=== PATIENT | female | born 1990 ===

== ENCOUNTER 2016-11-05 13:31 | Emergency (ER) | payer MEDICAID, OTHER ==
[2016-11-05 13:46] VITALS: BP 115/78; PULSE 61; RESP 18; TEMP 97.7; O2SAT 100
--- NOTE | 2016-11-05 14:43 | ED PDOC ---
Syncope/Near Syncope/Dizzyness Time Seen by Provider: 11/05/16 14:07 Chief Complaint (Nursing): Dizziness/Lightheaded Chief Complaint (Provider): Dizzy History Per: Patient Additional Complaint(s): pt c/o dizziness and nausea today. also c/o pain from rt buttock radiating to rt thigh x3 days with pain on urination. Past Medical History Reviewed: Nursing Documentation, Vital Signs Vital Signs: Last Vital Signs Temp 97.7 F 11/05/16 13:40 Pulse 61 11/05/16 13:40 Resp 18 11/05/16 13:40 BP 115/78 11/05/16 13:40 Pulse Ox 100 11/05/16 13:40 - Surgical History Surgical History: Appendectomy (2008) - Family History Family History: States: Unknown Family Hx - Social History Current smoker - smoking cessation education provided: No Alcohol: Social - Home Medications Home Medications: Ambulatory Orders Medication Instructions Recorded Acetaminophen [Tylenol 325mg tab] 650 mg PO Q6 PRN #0 tab 02/20/16 Ciprofloxacin [Cipro] 1 tab PO BID #20 tab 02/20/16 Ibuprofen [Motrin Tab] 600 mg PO Q8 PRN #21 tab 02/20/16 Cyclobenzaprine [Cyclobenzaprine 10 mg PO TID #20 tab 11/05/16 HCl] Ibuprofen [Motrin] 600 mg PO Q6 #20 tab 11/05/16 oxyCODONE/Acetaminophen [Percocet 1 ea PO Q6 PRN #5 tab 11/05/16 5/325 mg Tab] - Allergies Allergies/Adverse Reactions: Allergies Allergy/AdvReac Type Severity Reaction Status Date / Time Penicillins AdvReac Mild yeast Verified 11/05/16 13:40 metronidazole AdvReac NAUSEA Verified 11/05/16 13:40 Review of Systems ROS Statement: Except As Marked, All Systems Reviewed And Found Negative Musculoskeletal: Positive for: Back Pain Physical Exam - Reviewed Nursing Documentation Reviewed: Yes Vital Signs Reviewed: Yes - Physical Exam Appears: Positive for: Well, Non-toxic, No Acute Distress Head Exam: Positive for: ATRAUMATIC, NORMAL INSPECTION, NORMOCEPHALIC Skin: Positive for: Normal Color, Warm, DRY Eye Exam: Positive for: EOMI, Normal appearance, PERRL ENT: Positive for: Normal ENT Inspection Neck: Positive for: Normal, Painless ROM Cardiovascular/Chest: Positive for: Regular Rate, Rhythm Respiratory: Positive for: CNT, Normal Breath Sounds Gastrointestinal/Abdominal: Positive for: Normal Exam, Bowel Sounds, Soft Back: Positive for: Normal Inspection Extremity: Positive for: Normal ROM Neurologic/Psych: Positive for: Alert, Oriented - Laboratory Results Result Diagrams: 11/05/16 14:35 11/05/16 14:35 - ECG O2 Sat by Pulse Oximetry: 100 Medical Decision Making Medical Decision Making: Diagnostics reviewed with Pt who demonstrated full understanding medicate with zofran, Perc and Toradol. doing well on re-eval. Disposition - Clinical Impression Clinical Impression: Sciatica - Patient ED Disposition Is Patient to be Admitted: No - Disposition Disposition: Routine/Home Disposition Time: 17:00 Condition: GOOD Prescriptions: Cyclobenzaprine [Cyclobenzaprine HCl] 10 mg PO TID #20 tab Ibuprofen [Motrin] 600 mg PO Q6 #20 tab oxyCODONE/Acetaminophen [Percocet 5/325 mg Tab] 1 ea PO Q6 PRN #5 tab PRN Reason: Pain, Severe (8-10) Instructions: Sciatica (ED) Forms: [facility] ED School/Work Excuse - POA Present On Arrival: None
[2016-11-05 14:54] LABS: BASO # 0.1 K/uL (0.0-0.2); BASO % 0.8 % (0.0-2.0); EOS # 0.2 K/uL (0.0-0.7); EOS % 3.6 % (0.0-4.0); HEMATOCRIT 34.7 % (34.0-47.0); LYMPH # 2.5 K/uL (1.0-4.3); LYMPH % 40.3 % (20.0-40.0); MEAN CELL VOLUME 90.5 fl (81.0-99.0); MEAN CORPUSCULAR HEMOGLOBIN 29.7 pg (27.0-31.0); MEAN CORPUSCULAR HGB CONC 32.9 g/dL (33.0-37.0); MEAN PLATELET VOLUME 9.6 fl (7.2-11.7); MONO # 0.4 K/uL (0.0-0.8); MONO % 6.2 % (0.0-10.0); NEUT # 3.1 K/uL (1.8-7.0); NEUT % 49.1 % (50.0-75.0); NRBC % 0.1 % (0.0-0.0); RED CELL DISTRIBUTION WIDTH 13.4 % (11.5-14.5); WHITE BLOOD COUNT 6.3 K/uL (4.8-10.8)
[2016-11-05 15:00] LABS: ALB/GLOB RATIO 1.4 (1.0-2.1); ALKALINE PHOSPHATASE 79 U/L (38-126); ALT/SGPT 20 U/L (9-52); AST/SGOT 31 U/L (14-36); BILIRUBIN,TOTAL 0.7 mg/dl (0.2-1.3); BLOOD UREA NITROGEN 13 mg/dl (7-17); CALCIUM 9.2 mg/dL (8.4-10.2); CARBON DIOXIDE 26 mmol/L (22-30); CHLORIDE 105 mmol/L (98-107); GFR AFRICAN-AMERICAN > 60; GLUCOSE,RANDOM 93 mg/dL (65-105); POTASSIUM 3.9 MMOL/L (3.6-5.0); SODIUM 144 mmol/l (132-148); TOTAL PROTEIN 7.4 G/DL (6.3-8.2)
[2016-11-05 15:03] LABS: RBC URINE 1 /hpf (0-3); URINE BILIRUBIN NEGATIVE (NEGATIVE); URINE BLOOD NEGATIVE (NEGATIVE); URINE COLOR YELLOW (YELLOW); URINE GLUCOSE (UA) NEG (Normal); URINE KETONE NEGATIVE (NEGATIVE); URINE LEUKOCYTE ESTERASE NEG Leu/uL (Negative); URINE PROTEIN NEGATIVE (NEGATIVE); WBC URINE 1 /hpf (0-5)
--- NOTE | 2016-11-05 17:09 | US ---
HISTORY: RLQ pain, r/o torsion COMPARISON: None available. TECHNIQUE: Transvaginal FINDINGS: UTERUS: Measures 7.2 x 3.2 x 6.3 cm. Posterior intramural uterine fibroid, 1.3 x 1.5 x 1.6 cm. ENDOMETRIUM: Measures 5 mm in diameter. Trace endometrial fluid. CERVIX: No cervical abnormality identified. RIGHT OVARY: Measures 3.2 x 2.7 x 3.1 cm. No solid mass. Normal flow. Follicular cysts up to 2.2 cm. LEFT OVARY: Measures 2.7 x 1.9 x 2.9 cm. No solid mass. Normal flow. Follicular cysts noted. FREE FLUID: No significant free fluid noted. OTHER FINDINGS: None IMPRESSION: 1.6 cm posterior intramural uterine fibroid. Trace endometrial fluid. No evidence of ovarian torsion.
[2016-11-05] MEDS ORDERED: Oxycodone/Acetaminophen 5/325 mg Tab PO STA (17:52)
[2016-11-05] MEDS ORDERED: Oxycodone/Acetaminophen 5/325 mg Tab ONE (18:33)
== END 2016-11-05 18:43 | disposition home or self-care (01) ==
LOC: H.ER 13:31
DX: M54.30 Sciatica, unspecified side (principal)

== ENCOUNTER 2017-07-06 11:09 | Emergency (ER) | payer MEDICAID, OTHER ==
[2017-07-06 11:17] VITALS: RESP 18; TEMP 97.6
--- NOTE | 2017-07-06 11:43 | ED PDOC ---
HPI: Back Time Seen by Provider: 07/06/17 11:30 Chief Complaint (Nursing): Back Pain Chief Complaint (Provider): low back pain History Per: Patient Additional Complaint(s): 26-year-old female presents to emergency department with right-sided back pain that radiates down her right leg. Patient states the pain started yesterday. She denies trauma or injury. Patient has had flareups of sciatica pain in the past. She took Motrin last night which allowed her to sleep but when she woke up this morning she had worsening pain prompting ED visit. No acute bowel or bladder dysfunction. She rates current pain as an 8 out of 10. Past Medical History Reviewed: Historical Data Vital Signs: Last Vital Signs Temp 97.6 F 07/06/17 11:17 Pulse 68 07/06/17 11:17 Resp 18 07/06/17 11:17 BP 107/56 L 07/06/17 11:17 Pulse Ox 100 07/06/17 11:17 - Medical History PMH: Back Problems - Surgical History Surgical History: Appendectomy (2009), (x 2) Other surgeries: gastric bypass surgery - Family History Family History: States: No Known Family Hx - Living Arrangements Living Arrangements: With Family - Social History Current smoker - smoking cessation education provided: No Alcohol: None Drugs: Denies - Home Medications Home Medications: Ambulatory Orders Medication Instructions Recorded Acetaminophen [Tylenol 325mg tab] 650 mg PO Q6 PRN #0 tab 02/20/16 Ciprofloxacin [Cipro] 1 tab PO BID #20 tab 02/20/16 Ibuprofen [Motrin Tab] 600 mg PO Q8 PRN #21 tab 02/20/16 Cyclobenzaprine [Cyclobenzaprine 10 mg PO TID #20 tab 11/05/16 HCl] Ibuprofen [Motrin] 600 mg PO Q6 #20 tab 11/05/16 oxyCODONE/Acetaminophen [Percocet 1 ea PO Q6 PRN #5 tab 11/05/16 5/325 mg Tab] Metoclopramide [Reglan] 10 mg PO Q6 PRN #20 tab 06/08/17 Naproxen [Naprosyn] 500 mg PO BID #20 tab 06/08/17 Cyclobenzaprine [Cyclobenzaprine 10 mg PO TID PRN #20 tab 07/06/17 HCl] Naproxen [Naprosyn] 500 mg PO BID #20 tab 07/06/17 - Allergies Allergies/Adverse Reactions: Allergies Allergy/AdvReac Type Severity Reaction Status Date / Time Penicillins AdvReac Mild yeast Verified 07/06/17 11:40 metronidazole AdvReac NAUSEA Verified 07/06/17 11:40 Review of Systems ROS Statement: Except As Marked, All Systems Reviewed And Found Negative Genitourinary Female: Negative for: Dysuria, Frequency, Incontinence, Hematuria Musculoskeletal: Positive for: Back Pain (with radiation to right leg) Physical Exam - Reviewed Nursing Documentation Reviewed: Yes Vital Signs Reviewed: Yes - Physical Exam Appears: Positive for: Well, Non-toxic, No Acute Distress Skin: Negative for: Rash Eye Exam: Positive for: Normal appearance Cardiovascular/Chest: Positive for: Regular Rate, Rhythm Respiratory: Positive for: Normal Breath Sounds Back: Positive for: Vertebral Tenderness (right side lower lumbar tenderness), Other (straight leg raise positive on right leg at 30 degrees, negative on left) . Negative for: L CVA Tenderness, R CVA Tenderness Extremity: Positive for: Normal ROM Neurologic/Psych: Positive for: Alert, Oriented - Laboratory Results Urine POC: Negative Urine dip results: Positive for: Blood (moderate - patient is currently menstruating). Negative for: Leukocyte Esterase, Nitrate, Ketones, Glucose, Bilirubin, Protein - ECG O2 Sat by Pulse Oximetry: 100 Pulse Ox Interpretation: Normal - Other Rad L/S Spine X-ray X-Ray: Interpreted by Me, Viewed By Me X-Ray Interpretation: no acute fx, no dis Medical Decision Making Medical Decision Makin-year-old female with back pain and sciatica Plan: IM toradol PO flexeril Urine dip/ test L/S Spine x-ray Patient reports improvement to pain after medications administered. She is aware of all diagnostic testing results, all questions answered. Patient given prescriptions for Naprosyn and Flexeril. She was referred to orthopedist operator electronic warfare or instructed to follow-up with primary doctor for further evaluation. Disposition - Clinical Impression Clinical Impression: Back pain, Sciatica - Patient ED Disposition Is Patient to be Admitted: No Counseled Patient/Family Regarding: Studies Performed, Diagnosis, Need For Followup, Rx Given - Disposition Referrals: Jaleel Cardoza III, MD [Staff Provider] - Disposition: Routine/Home Disposition Time: 15:19 Condition: STABLE Additional Instructions: Take prescription medications as directed as needed for pain. Rest as much as possible and avoid heavy lifting. Follow up with primary doctor or orthopedist for any persistent symptoms. Prescriptions: Cyclobenzaprine [Cyclobenzaprine HCl] 10 mg PO TID PRN #20 tab PRN Reason: Muscle Spasm Naproxen [Naprosyn] 500 mg PO BID #20 tab Instructions: Sciatica (ED), Back Pain (ED) Forms: [employer] (Belarusian), [facility] ED School/Work Excuse
--- NOTE | 2017-07-06 13:40 | RAD ---
PROCEDURE: Radiographs of the Lumbar Spine. HISTORY: pain COMPARISON: CT abdomen and pelvis with contrast performed 02/19/16 FINDINGS: BONES: Alignment appears satisfactory. No listhesis. No acute displaced fracture identified. DISC SPACES: Unremarkable. OTHER FINDINGS: Scattered surgical clips noted. IMPRESSION: No acute displaced fracture or subluxation identified.
[2017-07-06 15:57] VITALS: BP 109/60; PULSE 69
[2017-07-06 16:57] VITALS: O2SAT 100
== END 2017-07-06 15:58 | disposition home or self-care (01) ==
LOC: H.ER 11:09
DX: M54.31 Sciatica, right side (principal); Z88.0 Allergy status to penicillin
CPT/HCPCS: 72100; 81025; 96372; 99283; J1885

== ENCOUNTER 2018-06-11 10:11 | Emergency (ER) | payer OTHER ==
[2018-06-11 10:16] VITALS: BMI 25.4
[2018-06-11] MEDS ORDERED: Lidocaine 5% Patch TD STA (11:12)
[2018-06-11] MEDS ORDERED: Lidocaine 5% Patch TD ONE (11:19)
--- NOTE | 2018-06-11 12:10 | ED PDOC ---
HPI: Back Time Seen by Provider: 06/11/18 10:33 Chief Complaint (Nursing): Back Pain History Per: Patient Additional Complaint(s): Pt. states for the past 3 days she's had atraumatic non-radiating lower back pain. Pain is worsened with movement. Further states she's been taking Aleve without relief. Reports a hx of sciatica but no previous back surgery. Denies incontinence, dysuria, hematuria, N/V/D, abdominal pain, saddle paresthesias, leg pain. Past Medical History Reviewed: Historical Data, Nursing Documentation, Vital Signs Vital Signs: Last Vital Signs Temp 98.1 F 06/11/18 10:16 Pulse 61 06/11/18 10:16 Resp 18 06/11/18 10:16 BP 110/67 06/11/18 10:16 Pulse Ox 100 06/11/18 10:16 - Medical History PMH: Back Problems, Chronic Kidney Disease - Surgical History Surgical History: Appendectomy (2008), (x 2) - Family History Family History: States: Unknown Family Hx - Home Medications Home Medications: Ambulatory Orders Medication Instructions Recorded Acetaminophen [Tylenol 325mg tab] 650 mg PO Q6 PRN #0 tab 02/20/16 Ciprofloxacin [Cipro] 1 tab PO BID #20 tab 02/20/16 Ibuprofen [Motrin Tab] 600 mg PO Q8 PRN #21 tab 02/20/16 Cyclobenzaprine [Cyclobenzaprine 10 mg PO TID #20 tab 11/05/16 HCl] Ibuprofen [Motrin] 600 mg PO Q6 #20 tab 11/05/16 oxyCODONE/Acetaminophen [Percocet 1 ea PO Q6 PRN #5 tab 11/05/16 5/325 mg Tab] Metoclopramide [Reglan] 10 mg PO Q6 PRN #20 tab 06/08/17 Naproxen [Naprosyn] 500 mg PO BID #20 tab 06/08/17 Cyclobenzaprine [Cyclobenzaprine 10 mg PO TID PRN #20 tab 07/06/17 HCl] Naproxen [Naprosyn] 500 mg PO BID #20 tab 07/06/17 Cyclobenzaprine [Cyclobenzaprine 10 mg PO Q8 PRN #14 tab 06/11/18 HCl] Meloxicam [Mobic] 7.5 mg PO DAILY PRN #10 tab 06/11/18 - Allergies Allergies/Adverse Reactions: Allergies Allergy/AdvReac Type Severity Reaction Status Date / Time metronidazole AdvReac NAUSEA Verified 06/11/18 10:23 Review of Systems ROS Statement: Except As Marked, All Systems Reviewed And Found Negative Musculoskeletal: Positive for: Back Pain Physical Exam - Physical Exam Appears: Positive for: Well, Non-toxic, No Acute Distress Skin: Positive for: Normal Color, Warm. Negative for: Rash Eye Exam: Positive for: Normal appearance Cardiovascular/Chest: Positive for: Regular Rate, Rhythm Respiratory: Positive for: Normal Breath Sounds Gastrointestinal/Abdominal: Positive for: Soft. Negative for: Tenderness Back: Positive for: Normal Inspection, Muscle Spasm (b/l paralumbar muscle spasm with tenderness). Negative for: L CVA Tenderness, R CVA Tenderness, Vertebral Tenderness Extremity: Positive for: Normal ROM Neurologic/Psych: Positive for: Alert, Oriented (x3) - ECG O2 Sat by Pulse Oximetry: 100 - Radiology X-Ray: Read By Radiologist (LS spine x-ray) X-Ray Interpretation: No Acute Disease - Progress ED Course And Treament: Toradol 30mg IM, flexeril 10mg PO, lidoderm patch, LS spine x-ray, UA ordered. Re-evaluation Time: 13:08 (States she is currently on her period. Advised to f/u with [facility] for further evaluatin of back pain. ) Condition: Re-examined, Improved Disposition - Clinical Impression Clinical Impression: Low back pain - Patient ED Disposition Is Patient to be Admitted: No - Disposition Referrals: [facility] [Outside] Disposition: Routine/Home Disposition Time: 13:09 Condition: IMPROVED Additional Instructions: JOSH CISNEROS, thank you for letting us take care of you today. Your provider was Taty Adams MD and you were treated for BACK PAIN. The emergency medical care you received today was directed at your acute symptoms. If you were prescribed any medication, please fill it and take as directed. It may take several days for your symptoms to resolve. Return to the Emergency Department if your symptoms worsen, do not improve, or if you have any other problems. Please contact your doctor or call one of the physicians/clinics you have been referred to that are listed on the Patient Visit Information form that is included in your discharge packet. Bring any paperwork you were given at discharge with you along with any medications you are taking to your follow up visit. Our treatment cannot replace ongoing medical care by a primary care provider outside of the emergency department. Thank you for allowing the [facility] team to be part of your care today. If you had an X-Ray or CT scan: A Radiologist will review the ED reading if any change in treatment is needed we will contact you. If you had a blood, urine, or wound culture: It will take several days for the results, if any change in treatment is needed we will contact you. If you had an STI test: It will take 48 hours for the results. Please call after 1 week if you have not heard back. Prescriptions: Cyclobenzaprine [Cyclobenzaprine HCl] 10 mg PO Q8 PRN #14 tab PRN Reason: Muscle Spasm Meloxicam [Mobic] 7.5 mg PO DAILY PRN #10 tab PRN Reason: Pain, Mild (1-3) Instructions: Low Back Pain (DC) Forms: [employer] (Vietnamese)
--- NOTE | 2018-06-11 12:10 | RAD ---
Date of service: 06/11/2018 PROCEDURE: Radiographs of the Lumbar Spine. HISTORY: pain COMPARISON: No prior. FINDINGS: BONES: Three views of the lumbar spine were performed. No fracture is seen. No malalignment is noted. Posterior elements are intact. Minor endplate changes are identified in the lumbar spine region. Sacroiliac joints are unremarkable. No significant scoliosis is seen. Pedicles are intact. No significant pars defect or facet hypertrophy is noted. DISC SPACES: Grossly maintained. OTHER FINDINGS: None. IMPRESSION: No fracture or malalignment.
[2018-06-11 12:33] LABS: SQUAMOUS EPITHIAL < 1 /hpf (0-5); URINE BACTERIA RARE (<OCC); URINE BILIRUBIN NEGATIVE (NEGATIVE); URINE BLOOD LARGE (NEGATIVE); URINE CLARITY SLIGHTY-CLOUDY (Clear); URINE COLOR YELLOW (YELLOW); URINE GLUCOSE (UA) NEG (Normal); URINE LEUKOCYTE ESTERASE NEG Leu/uL (Negative); URINE PROTEIN NEGATIVE (NEGATIVE); URINE UROBILINOGEN 0.2-1.0 mg/dL (0.2-1.0)
[2018-06-11 13:23] VITALS: BP 113/76; PULSE 79; RESP 16; TEMP 98.3; O2SAT 99
== END 2018-06-11 13:23 | disposition home or self-care (01) ==
LOC: H.ER 10:11
DX: M54.5 Low back pain (principal)
CPT/HCPCS: 72100; 81003; 81025; 96372; 99283; J1885

== ENCOUNTER 2018-08-19 12:53 | Emergency (ER) | payer OTHER ==
[2018-08-19 12:54] VITALS: BMI 25.4
[2018-08-19 13:12] VITALS: O2SAT 98
[2018-08-19] MEDS ORDERED: DiphenhydrAMINE 50 mg/ml Inj IVP STA (13:19)
[2018-08-19] MEDS ORDERED: Sodium Chloride 0.9% 1,000 ML IV SCH (13:30)
[2018-08-19] MEDS ORDERED: DiphenhydrAMINE 50 mg/ml Inj ONE (13:31)
--- NOTE | 2018-08-19 13:31 | ED PDOC ---
HPI: Headache Time Seen by Provider: 08/19/18 13:18 Chief Complaint (Nursing): Headache Chief Complaint (Provider): Headache History Per: Patient History/Exam Limitations: no limitations Onset/Duration Of Symptoms: Days (x4) Current Symptoms Are (Timing): Still Present Additional Complaint(s): Patient is a 28 y/o female with a PMHx of back problems, sciatica, and chronic kidney disease who presents to the ED for evaluation of migraines ongoing for the past four days. Yesterday night, patient began experiencing nausea, vomiting, and dizziness. Patient woke up this morning with lower back pain she states is associated with her sciatica. Of note, patient has been taking Tylenol for relief. Pt has no PMD Past Medical History Reviewed: Historical Data, Nursing Documentation, Vital Signs Vital Signs: Last Vital Signs Temp 97.8 F 08/19/18 13:10 Pulse 57 L 08/19/18 13:10 Resp 20 08/19/18 13:10 BP 109/53 L 08/19/18 13:10 Pulse Ox 98 08/19/18 13:10 - Medical History PMH: Back Problems, Chronic Kidney Disease Other PMH: sciatica; migraine headaches (chronic) - Surgical History Surgical History: Appendectomy (2009), (x 2) - Family History Family History: States: Unknown Family Hx - Home Medications Home Medications: Ambulatory Orders Medication Instructions Recorded Acetaminophen [Tylenol 325mg tab] 650 mg PO Q6 PRN #0 tab 02/20/16 Ciprofloxacin [Cipro] 1 tab PO BID #20 tab 02/20/16 Ibuprofen [Motrin Tab] 600 mg PO Q8 PRN #21 tab 02/20/16 Cyclobenzaprine [Cyclobenzaprine 10 mg PO TID #20 tab 11/05/16 HCl] Ibuprofen [Motrin] 600 mg PO Q6 #20 tab 11/05/16 oxyCODONE/Acetaminophen [Percocet 1 ea PO Q6 PRN #5 tab 11/05/16 5/325 mg Tab] Metoclopramide [Reglan] 10 mg PO Q6 PRN #20 tab 06/08/17 Naproxen [Naprosyn] 500 mg PO BID #20 tab 06/08/17 Cyclobenzaprine [Cyclobenzaprine 10 mg PO TID PRN #20 tab 07/06/17 HCl] Naproxen [Naprosyn] 500 mg PO BID #20 tab 07/06/17 Cyclobenzaprine [Cyclobenzaprine 10 mg PO Q8 PRN #14 tab 06/11/18 HCl] Meloxicam [Mobic] 7.5 mg PO DAILY PRN #10 tab 06/11/18 Indomethacin 50 mg PO TID PRN #24 capsule 08/19/18 - Allergies Allergies/Adverse Reactions: Allergies Allergy/AdvReac Type Severity Reaction Status Date / Time metronidazole AdvReac NAUSEA Verified 08/19/18 13:09 Review of Systems ROS Statement: Except As Marked, All Systems Reviewed And Found Negative Gastrointestinal: Positive for: Nausea, Vomiting Musculoskeletal: Positive for: Back Pain (lower) Neurological: Positive for: Headache Physical Exam - Reviewed Nursing Documentation Reviewed: Yes Vital Signs Reviewed: Yes - Physical Exam Appears: Positive for: No Acute Distress Head Exam: Positive for: ATRAUMATIC, NORMAL INSPECTION, NORMOCEPHALIC Skin: Positive for: Normal Color, Warm, DRY Eye Exam: Positive for: EOMI, Normal appearance, PERRL ENT: Positive for: Normal ENT Inspection Neck: Positive for: Normal, Painless ROM, Supple Cardiovascular/Chest: Positive for: Regular Rate, Rhythm. Negative for: Murmur, Bradycardia, Tachycardia Respiratory: Positive for: Normal Breath Sounds (clear auscultation bilaterally). Negative for: Decreased Breath Sounds, Accessory Muscle Use, Crackles, Rales, Rhonchi, Stridor, Wheezing, Respiratory Distress Pulses-Carotid (L): 2+ Pulses-Carotid (R): 2+ Pulses-Radial (L): 2+ Pulses-Radial (R): 2+ Back: Positive for: Normal Inspection. Negative for: L CVA Tenderness, R CVA Tenderness, Vertebral Tenderness Extremity: Positive for: Normal ROM (Upper/Lower). Negative for: Pedal Edema Neurologic/Psych: Positive for: Alert, Oriented. Negative for: Motor/Sensory Deficits - Laboratory Results Result Diagrams: 08/19/18 13:20 08/19/18 13:20 - ECG O2 Sat by Pulse Oximetry: 98 (RA) Pulse Ox Interpretation: Normal Medical Decision Making Medical Decision Making: Time: Impression: migraine Plan: CMP Urine CBC Benadryl 50 mg IVP IV Fluids Toradol 30 mg IVP Tylenol 975 mg PO Zofran Inj 4 mg IVP Influenza A B UA all test results lack clinical significance Pt is resting with symptoms alleviated at 1530 revaluation Pt is stable for discharge --- Scribe Attestation: Documented by Braeden Mejia, acting as a scribe for HERMELINDO Sumner. Provider Scribe Attestation: All medical record entries made by the Scribe were at my direction and personally dictated by me. I have reviewed the chart and agree that the record accurately reflects my personal performance of the history, physical exam, medical decision making, and the department course for this patient. I have also personally directed, reviewed, and agree with the discharge instructions and disposition. Disposition - Clinical Impression Clinical Impression: Migraine - Patient ED Disposition Is Patient to be Admitted: No Doctor Will See Patient In The: Office Counseled Patient/Family Regarding: Studies Performed, Diagnosis, Need For Followup - Disposition [facility] [Outside] [facility] [Outside] Disposition: Routine/Home Disposition Time: 15:42 Condition: STABLE Prescriptions: Indomethacin 50 mg PO TID PRN #24 capsule PRN Reason: Headache Instructions: Migraine Headache (DC), Headache, Adult (DC), Migraine Headaches in Adults Forms: [employer] (Greenlandic)
[2018-08-19 14:44] LABS: BASO % 0.9 % (0.0-2.0); EOS # 0.1 K/uL (0.0-0.7); EOS % 1.9 % (0.0-4.0); HEMOGLOBIN 11.8 g/dL (12.0-16.0); LYMPH # 1.6 K/uL (1.0-4.3); LYMPH % 30.3 % (20.0-40.0); MEAN CELL VOLUME 92.8 fl (81.0-99.0); MEAN CORPUSCULAR HEMOGLOBIN 30.8 pg (27.0-31.0); MEAN CORPUSCULAR HGB CONC 33.2 g/dL (33.0-37.0); MEAN PLATELET VOLUME 9.8 fl (7.2-11.7); MONO # 0.4 K/uL (0.0-0.8); MONO % 6.9 % (0.0-10.0); NEUT # 3.2 K/uL (1.8-7.0); NRBC % 0.1 % (0.0-0.0); RBC 3.82 Mil/uL (3.80-5.20); RED CELL DISTRIBUTION WIDTH 13.2 % (11.5-14.5); WHITE BLOOD COUNT 5.4 K/uL (4.8-10.8)
[2018-08-19 14:52] LABS: SQUAMOUS EPITHIAL < 1 /hpf (0-5); URINE BACTERIA RARE (<OCC); URINE BILIRUBIN NEGATIVE (NEGATIVE); URINE BLOOD NEGATIVE (NEGATIVE); URINE CLARITY SLIGHTY-CLOUDY (Clear); URINE COLOR YELLOW (YELLOW); URINE GLUCOSE (UA) 50 mg/dL (NEGATIVE); URINE LEUKOCYTE ESTERASE NEG Leu/uL (Negative); URINE PROTEIN NEGATIVE (NEGATIVE); URINE UROBILINOGEN 0.2-1.0 mg/dL (0.2-1.0)
[2018-08-19 14:57] LABS: ALB/GLOB RATIO 1.4 (1.0-2.1); ALBUMIN 4.4 g/dL (3.5-5.0); ALT/SGPT 25 U/L (9-52); AST/SGOT 41 U/L (14-36); BLOOD UREA NITROGEN 11 mg/dl (7-17); CALCIUM 9.2 mg/dL (8.4-10.2); GFR NON-AFRICAN AMERICAN > 60
[2018-08-19 15:56] VITALS: BP 118/74; PULSE 64; RESP 16; TEMP 98
== END 2018-08-19 16:15 | disposition home or self-care (01) ==
LOC: H.ER 12:53
DX: G43.909 Migraine, unspecified, not intractable, without status migrainosus (principal)
CPT/HCPCS: 80053; 81003; 81025; 85025; 87804; 96361; 96374; 96375; 99283; J1200; J1885; J2405; J7030

== ENCOUNTER 2018-11-05 12:50 | Emergency (ER) | payer OTHER ==
[2018-11-05 12:50] VITALS: BMI 25.4
[2018-11-05 12:58] VITALS: BP 97/62; PULSE 58; RESP 19; TEMP 97.8; O2SAT 100
--- NOTE | 2018-11-05 13:10 | ED PDOC ---
HPI: Female Pain Time Seen by Provider: 11/05/18 13:00 Chief Complaint (Nursing): Female Genitourinary Chief Complaint (Provider): Dysuria/Frequency History Per: Patient History/Exam Limitations: no limitations Onset/Duration Of Symptoms: Days (1x week) Current Symptoms Are (Timing): Still Present Associated Symptoms: Back Pain, Urinary Symptoms (dysuria, frequency, urgency), Other (lower abdominal pain). denies: Fever, Nausea, Vomiting, Diarrhea Additional Complaint(s): 28 year old female with no pertinent past medical history presents to the ED for evaluation of dysuria, urinary frequency, and urgency that started x1 week ago. Patient states that she has a history of UTIs, most recent one was 3x years ago, and states that the current symptoms are similar. Patient also reports having lower abdominal pain and back pain described as mild aching. Otherwise: (-) fevers/chills, (-) nausea, (-) vomiting, (-) diarrhea, (-) hematuria, (-) vaginal bleeding/discharge (-) flank pain (-) SOB/cough. LMP: 3x weeks ago. PMD: None. Past Medical History Reviewed: Historical Data, Nursing Documentation, Vital Signs Vital Signs: Last Vital Signs Temp 97.8 F 11/05/18 12:54 Pulse 58 L 11/05/18 12:54 Resp 19 11/05/18 12:54 BP 97/62 L 11/05/18 12:54 Pulse Ox 100 11/05/18 12:54 VENANCIO Report Viewed: Yes - Medical History PMH: Back Problems, Chronic Kidney Disease - Surgical History Surgical History: Appendectomy (2009), (x 2) Other surgeries: gastric bypass, tummy tuck - Family History Family History: States: No Known Family Hx - Home Medications Home Medications: Ambulatory Orders Medication Instructions Recorded Acetaminophen [Tylenol 325mg tab] 650 mg PO Q6 PRN #0 tab 02/20/16 Ciprofloxacin [Cipro] 1 tab PO BID #20 tab 02/20/16 Ibuprofen [Motrin Tab] 600 mg PO Q8 PRN #21 tab 02/20/16 Cyclobenzaprine [Cyclobenzaprine 10 mg PO TID #20 tab 11/05/16 HCl] Ibuprofen [Motrin] 600 mg PO Q6 #20 tab 11/05/16 oxyCODONE/Acetaminophen [Percocet 1 ea PO Q6 PRN #5 tab 11/05/16 5/325 mg Tab] Metoclopramide [Reglan] 10 mg PO Q6 PRN #20 tab 06/08/17 Naproxen [Naprosyn] 500 mg PO BID #20 tab 06/08/17 Cyclobenzaprine [Cyclobenzaprine 10 mg PO TID PRN #20 tab 07/06/17 HCl] Naproxen [Naprosyn] 500 mg PO BID #20 tab 07/06/17 Cyclobenzaprine [Cyclobenzaprine 10 mg PO Q8 PRN #14 tab 06/11/18 HCl] Meloxicam [Mobic] 7.5 mg PO DAILY PRN #10 tab 06/11/18 Indomethacin 50 mg PO TID PRN #24 capsule 08/19/18 Naproxen 500 mg PO BID PRN #20 tab 11/05/18 Nitrofurantoin Macrocrystals 100 mg PO BID #14 cap 11/05/18 [Macrobid] Phenazopyridine [Pyridium] 200 mg PO BID PRN #4 tab 11/05/18 - Allergies Allergies/Adverse Reactions: Allergies Allergy/AdvReac Type Severity Reaction Status Date / Time metronidazole AdvReac NAUSEA Verified 08/19/18 13:09 Review of Systems ROS Statement: Except As Marked, All Systems Reviewed And Found Negative Constitutional: Negative for: Fever Gastrointestinal: Positive for: Abdominal Pain (lower). Negative for: Nausea, Vomiting, Diarrhea Genitourinary Female: Positive for: Dysuria, Frequency (and urgency). Negative for: Hematuria, Vaginal Bleeding Musculoskeletal: Positive for: Back Pain Physical Exam - Reviewed Nursing Documentation Reviewed: Yes Vital Signs Reviewed: Yes - Physical Exam Comments: GENERAL APPEARANCE: Patient is awake, alert, oriented x 3, in no acute distress. Resting comfortably. SKIN: Warm, dry; (-) cyanosis. EYES: (-) conjunctival injection ENMT: Mucous membranes moist. Airway patent: (-) stridor. NECK: Supple, FROM CHEST AND RESPIRATORY: (-) wheezing; (-) rales, (-) rhonchi; breath sounds equal bilaterally. Respirations even and nonlabored. HEART AND CARDIOVASCULAR: (-) irregularity. ABDOMEN AND GI: Soft (+) mild suprapubic tenderness, otherwise abdomen is nontender (-) distention (-) guarding (-) CVA tenderness BACK: (-) midline tenderness. EXTREMITIES: (-) deformity NEURO AND PSYCH: Mental status as above; (-) focal findings. Gait: steady. Speech: clear. (-) facial asymmetry - Laboratory Results Urine POC: Negative - ECG O2 Sat by Pulse Oximetry: 100 (RA) Pulse Ox Interpretation: Normal Medical Decision Making Medical Decision Makin:00 Clinical impression: 28 year old female with dysuria and frequency; probable UTI. Initial plan: * upreg * urine culture * urinalysis * naproxen 500 mg PO * pyridium 200 mg PO * reevaluation 1355 U/A reviewed with no evidence of UTI. Patient denies any possibility of STD exposure given she is only sexually active with her . Patient declined STD prophylaxis. Macrobid 100mg PO ordered for clinical UTI, U/C pending. Patient advised to follow up in 1 week for repeat urine testing. On re-evaluation, patient reports improvement of symptoms. On exam, patient remains AAOx3, in no acute distress.Vitals stable. Lab/Diagnostic results d/w the patient in great detail. Diagnosis of dysuria, urinary frequency, probable UTI d/w the patient. Based on history, exam and diagnostic results, plan will be for outpatient follow up. Patient instructed to follow-up with pmd / referral provided / the clinic in 1- 2 days without fail. Advised to take medication as prescribed. Return to the emergency room at any time for any new or worsening symptoms. Patient states she fully agrees with and understands discharge instructions. States that she agrees with the plan and disposition. Verbalized and repeated discharge instructions and plan. I have given the patient opportunity to ask any additional questions. Scribe Attestation: Documented by Taty Adhikari, acting as a scribe for Taty Martinez. Provider Scribe Attestation: All medical record entries made by the Scribe were at my direction and personally dictated by me. I have reviewed the chart and agree that the record accurately reflects my personal performance of the history, physical exam, medical decision making, and the department course for this patient. I have also personally directed, reviewed, and agree with the discharge instructions and disposition. Disposition - Clinical Impression Clinical Impression: Urinary frequency, Dysuria, UTI (urinary tract infection) - Patient ED Disposition Is Patient to be Admitted: No Counseled Patient/Family Regarding: Studies Performed, Diagnosis, Need For Followup, Rx Given - Disposition [facility]: [facility] Disposition: Routine/Home Disposition Time: 13:55 Condition: STABLE Additional Instructions: The emergency medical care you received today was directed at your acute symptoms. If you were prescribed any medication, please fill it and take as directed. It may take several days for your symptoms to resolve. Return to the Emergency Department if your symptoms worsen, do not improve, or if you have any other problems. Please contact your doctor in 2 days for re-evaluation and follow up / or call one of the physicians/clinics you have been referred to that are listed on the Patient Visit Information form that is included in your discharge packet. Bring any paperwork you were given at discharge with you along with any medications you are taking to your follow up visit. Our treatment cannot replace ongoing medical care by a primary care provider (PCP) outside of the emergency department. Prescriptions: Naproxen 500 mg PO BID PRN #20 tab PRN Reason: Pain, Moderate (4-7) Nitrofurantoin Macrocrystals [Macrobid] 100 mg PO BID #14 cap Phenazopyridine [Pyridium] 200 mg PO BID PRN #4 tab PRN Reason: urinary discomfort Instructions: Urinary Tract Infections in Adults, Dysuria, Adult (DC) Forms: [employer] (Belizean) Print Language: [place] - POA Present On Arrival: None Results - Lab Results Lab Results: 11/05/18 13:30 Urine Color Yellow Urine Clarity Slighty-cloudy Urine pH 6.0 Ur Specific [place] 1.023 Urine Protein Negative Urine Glucose (UA) Neg Urine Ketones Negative Urine Blood Negative Urine Nitrate Negative Urine Bilirubin Negative Urine Urobilinogen 0.2-1.0 Ur Leukocyte Esterase Neg Urine RBC (Auto) 1 Urine Microscopic WBC 1 Ur Squamous Epith Cells 3
[2018-11-05] MEDS ORDERED: Naproxen 500 MG TAB PO STA (13:11)
[2018-11-05] MEDS ORDERED: Naproxen 500 MG TAB PO ONE (13:33)
[2018-11-05 13:47] LABS: SQUAMOUS EPITHIAL 3 /hpf (0-5); URINE BILIRUBIN NEGATIVE (NEGATIVE); URINE BLOOD NEGATIVE (NEGATIVE); URINE CLARITY SLIGHTY-CLOUDY (Clear); URINE COLOR YELLOW (YELLOW); URINE GLUCOSE (UA) NEG (NEGATIVE); URINE LEUKOCYTE ESTERASE NEG Leu/uL (Negative); URINE PROTEIN NEGATIVE (NEGATIVE); URINE UROBILINOGEN 0.2-1.0 mg/dL (0.2-1.0)
== END 2018-11-05 14:18 | disposition home or self-care (01) ==
LOC: H.ER 12:50
DX: R35.0 Frequency of micturition (principal); R30.0 Dysuria; N39.0 Urinary tract infection, site not specified; N18.9 Chronic kidney disease, unspecified; Z88.1 Allergy status to other antibiotic agents; Z98.84 Bariatric surgery status